=== PATIENT | female | born 1960 | race Caucasian/White ===

== ENCOUNTER 2016-10-31 19:38 | Emergency (ER) | payer OTHER ==
[2016-10-31 19:51] VITALS: BP 139/87
[2016-10-31] MEDS ORDERED: KETOROLAC TROMETHAMINE 60 MG/2 ML VIAL IM ONE (20:01)
--- NOTE | 2016-10-31 20:04 | ERNOTE ---
Upper Extremity HPI - Narrative Date of Service: 10/31/16 - General Extremities Pain Location: shoulder: left - pain with mvt Time Seen by Provider: 10/31/16 19:57 Source: patient Exam Limitations: no limitations - Immun/Allergies/Home Medications Immunizations: IMMUNIZATION HX Immunizations Up to Date No History of Influenza Vaccine No Hx Pneumococcal Vaccination No Allergies/Adverse Reactions: Allergies Allergy/AdvReac Type Severity Reaction Status Date / Time No Known Allergies Allergy Verified 02/29/16 18:48 Home Medications: HOME MEDICATIONS Budesonide/Formoterol Fumarate [Symbicort 160-4.5 Mcg Inhaler] 2 puff IH BID [Last Taken Unknown] Tiotropium [place] [Spiriva Respimat] 2 puff IH DAILY 06/07/15 [Last Taken Unknown] Nitrofurantoin Macrocrystal [Nitrofurantoin] 100 mg PO BID #14 capsule 05/18/16 [Last Taken Unknown] Lyrica 150 mg PO DAILY 10/31/16 [Last Taken Unknown] - History of Present Illness Narrative: 56 year old female presenting to the ED for left shoulder pain x 2 months. 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 denies any CP or SOB. states that she has been seeing her pcp related to this. Date (Duration): 10/31/16 Occurred: other - several months Location of Incident: work Method of Injury: Reports: twisted Loss of Consciousness: Reports: no loss of consciousness Modifying Factors - (Improves): Reports: pain medication Modifying Factors - (Worsens): Reports: movement Associated Symptoms: Reports: tingling, weakness, loss of power (lt arm) Prior Treament: Reports: treated by physician, similar symptoms before Review of Systems - Review of Systems Constitutional: Present: no symptoms reported EYE: Present: no symptoms reported ENT: Present: no symptoms reported Respiratory: Present: no symptoms reported Cardiology: Present: no symptoms reported Gastrointestinal/Abdominal: Present: no symptoms reported Genitourinary: Present: no symptoms reported Musculoskeletal: Present: See HPI Skin: Present: no symptoms reported Neurological: Present: anxiety Endocrine: Present: no symptoms reported Hematologic/Lymphatic: Present: no symptoms reported Psych: Present: no symptoms reported All Other Systems: All systems neg except as marked - Patient's Past Medical History Patient History - Medical: Chronic Pain, GERD, Migraines, Other Patient History - Cardiac/Respiratory: Asthma, Bronchitis, COPD Patient History - Cancer: No Hx of Cancer Patient History - Surgical Procedures: Cholecystectomy, Tubal Ligation, Other Patient History - Other: None - Social History Living Situations: home Abuse History: No History of abuse Psych History: No pertinent hx Smoking Status: Current every day smoker Patient requests Smoking Cessation Consult: No Initiate information on Smoking Cessation: No Alcohol Use: sober Drug Use: none - Immunizations Immunizations Up to Date: No Hx Pneumococcal Vaccination: No History of Influenza Vaccine: No Physical Exam - Physical Exam Narrative: left should pain x 2 months. states that pcp has given her pain medication ( Lyrica) but she dosnt like to take it due to side effects. Patient does have pain and decreased ROM to left arm/shoulder. General Appearance: Present: wd/wn, alert, anxious Eye Exam: Normal inspection: bilateral Ears, Nose, Throat: Present: normal ENT inspection Neck: Present: normal inspection, nontender, full range of motion Respiratory: Present: no respiratory distress, lungs clear Cardiovascular/Chest: Present: regular rate, rhythm, no murmur, normal peripheral pulses Peripheral Pulses: N=norm/S=strong/W=weak/B=bound/A=absent: Radial (R): Normal, Radial (L): Normal Gastrointestinal/Abdominal: Present: normal bowel sounds, soft Back Exam: Present: normal inspection, normal range of motion Extremity Exam: Present: normal inspection, normal except - - decrease range of motion and pain to left shoulder with abduction of left arm, decreased range of motion Neurological Exam: Present: alert, oriented, normal mood/affect Skin Exam: Present: normal color Lymphatic Exam: Present: no adenopathy ED Progress - Vital Signs Vital Signs: Vital Signs 10/31/16 19:40 Temperature 36.7 C Pulse Rate 91 Respiratory 18 Rate Blood Pressure 139/87 O2 Sat by Pulse 98 Oximetry - X-Ray X-Ray #1 X-Ray: shoulder X-ray Comments: ER attending reviewed x ray. no acute process observed at this time. - Progress/Reassessment Chief Complaint: Upper Extremity Injury/Problem Progress:: Improved Plan - Plan Plan: patient is going to follow up with ortho or PCP in the am r/t her shoulder. Departure Clinical Impression: Shoulder pain, left Qualifiers: Chronicity: chronic Qualified Code(s): M25.512 - Pain in left shoulder; G89.29 - Other chronic pain - Departure Disposition: Home Follow Up Needed Condition: Stable Instructions: Shoulder Pain, [id number] Additional Instructions: Continue home medications. May apply ice or heat to shoulder as needed for pain. may take OTC pain medication as needed. Follow up with PCP or Ortho in the next few days for further treatment. return to the ER for pain that is not being able to be controlled with [id number] pain medications or new symptoms arise. Referrals: Bay Longo MD [Primary Care Provider] -
[2016-10-31] MEDS ORDERED: KETOROLAC TROMETHAMINE 30 MG/ML VIAL ONE (20:19)
--- OUTSIDE RECORDS SUMMARY | 2016-10-31 20:26 | XMS REPORT | Continuity of Care Document ---
:1960 Demographics Home Phone [phone] Preferred Language Unknown Marital Status Unknown Holiness Affiliation [employer] Race White Ethnic Group Unknown Author Organization [facility] ([facility]) Address [address] [place] [address] Phone [phone] Care Team Providers Name Role Phone Unavailable Primary Care Provider Unavailable Source Comments This disclosure is being made pursuant to the Care Everywhere program, applicable federal and state laws, and may not contain all informaitonavailable regarding this patient.[facility] ([facility]) Active Allergies and Adverse Reactions Not on File Current Medications Not on file Active Problems Not on file Social History Tobacco Use Types Packs/Day Years Used Date Never Assessed Plan of Care Health Maintenance Due Date Last Done Comments HCV Screening 1960 Tdap Vaccine 1970 Lipid Disorder Screening 1977 MMR Vaccine 1977 Td Vaccine 1977 Mammogram 1999 Cervical Cancer Screening 12/22/2001 12/22/1998 Colonoscopy 03/07/2009 Influenza Vaccine: Seasonal (#1) 02/12/2016 Hepatitis B Vaccine Completed 10/12/1998, 10/29/1988, 09/25/1988 Results from Last 3 Months Not on file
== END 2016-10-31 20:45 | disposition home or self-care (01) ==
LOC: ER 19:38
DX: M25.512 Pain in left shoulder (principal); G89.29 Other chronic pain

== ENCOUNTER 2017-01-17 15:55 | Emergency (ER) | payer OTHER ==
[2017-01-17] MEDS ORDERED: PROMETHAZINE HCL 50 MG/ML AMPUL IM ONE ×2 (17:12→17:19)
[2017-01-17] MEDS ORDERED: NALBUPHINE HCL 20 MG/ML AMPUL IM ONE (17:12)
--- NOTE | 2017-01-17 17:13 | ERNOTE ---
Headache ER HPI - Narrative Date of Service: 01/17/17 - General Presenting Symptoms: "migraine" Time Seen by Provider: 01/17/17 17:05 Source: patient, family, RN notes reviewed Exam Limitations: other - emotional upset - Immun/Allergies/Home Medications Immunizations: IMMUNIZATION HX Immunizations Up to Date Yes History of Influenza Vaccine Yes Hx Pneumococcal Vaccination No Allergies/Adverse Reactions: Allergies No Known Allergies Allergy (Verified 02/29/16 18:48) Home Medications: HOME MEDICATIONS Budesonide/Formoterol Fumarate [Symbicort 160-4.5 Mcg Inhaler] 2 puff IH BID [Last Taken Unknown] Tiotropium [place] [Spiriva Respimat] 2 puff IH DAILY 06/07/15 [Last Taken Unknown] Nitrofurantoin Macrocrystal [Nitrofurantoin] 100 mg PO BID #14 capsule 05/18/16 [Last Taken Unknown] Lyrica 150 mg PO DAILY 10/31/16 [Last Taken Unknown] - Pain Pain Score: 10 - History of Present Illness Narrative: 56 y/o female brought to the ED by her significant other and sister for a migraine. She had an appointment to be seen by her PCP, but she came to the appointment 2 hours early. They became upset and left the office. She was being seen because she is having headaches more often than usual as of late. She has been taking Tylenol without improvement. She has also taken Lyrica. Date (Duration): 01/16/17 Timing of Headache: abrupt, still present Quality: Present: stabbing, throbbing Severity Maximum: Present: severe Severity-Currently: Present: severe Headache frequency: Present: frequent headaches, similar to previous headache Exacerbated by:: Reports: light Prior Treament: Reports: similar symptoms before. Denies: recently seen Review of Systems - Review of Systems Constitutional: Present: fatigue. Absent: recent illness, fever, chills EYE: Absent: eye pain, vision changes ENT: Present: nose congestion, nasal drainage. Absent: ear pain, sore throat Respiratory: Absent: shortness of breath, cough Cardiology: Absent: chest pain, syncope Gastrointestinal/Abdominal: Absent: nausea, vomiting, abdominal pain Genitourinary: Present: no symptoms reported Musculoskeletal: Absent: muscle pain, neck pain Skin: Absent: rash, lesions Neurological: Present: headache. Absent: dizziness/light-headedness Endocrine: Present: no symptoms reported Hematologic/Lymphatic: Present: no symptoms reported Psych: Present: no symptoms reported - Patient's Past Medical History Patient History - Medical: Chronic Pain, GERD, Migraines, Other Patient History - Cardiac/Respiratory: Asthma, Bronchitis, COPD Patient History - Cancer: No Hx of Cancer Patient History - Surgical Procedures: Cholecystectomy, Tubal Ligation, Other Patient History - Other: None - Social History Living Situations: home Abuse History: No History of abuse Psych History: No pertinent hx Smoking Status: Current every day smoker Have you smoked in the past 12 months: Yes Do you dip or chew tobacco: No Patient requests Smoking Cessation Consult: No Initiate information on Smoking Cessation: No Alcohol Use: occasionally Drug Use: none - Immunizations Immunizations Up to Date: Yes Hx Pneumococcal Vaccination: No History of Influenza Vaccine: Yes Physical Exam - Physical Exam General Appearance: Present: wd/wn, alert, mild distress, other - Wearing sunglasses, sitting in dark room Eye Exam: Normal inspection: bilateral, PERRL: bilateral Ears, Nose, Throat: Present: nasal congestion, normal pharynx. Absent: abnormal TM (R), abnormal TM (L), sinus pain/drainage Neck: Present: normal inspection, nontender, supple, full range of motion Respiratory: Present: no respiratory distress, normal breath sounds, no accessory muscle use, lungs clear Cardiovascular/Chest: Present: regular rate, rhythm, no murmur Extremity Exam: Present: normal inspection, normal range of motion, no edema Neurological Exam: Present: alert, oriented, normal mood/affect, no motor/ sensory deficits Skin Exam: Present: normal color, warm/dry ED Progress - Vital Signs Patient's Vital Signs:: I have reviewed the patient's vital signs. Vital Signs: Vital Signs 01/17/17 16:06 Temperature 35.8 C L Pulse Rate 103 H Respiratory 16 Rate Blood Pressure 106/76 O2 Sat by Pulse 96 Oximetry - Progress/Reassessment Chief Complaint: Headache Progress:: Improved Departure Clinical Impression: Migraine headache Qualifiers: Migraine type: without aura Status migrainosus presence: without status migrainosus Intractability: not intractable Qualified Code(s): G43.009 - Migraine without aura, not intractable, without status migrainosus - Departure Disposition: Home Follow Up Needed Condition: Stable Instructions: Migraine Headache, [id number] Referrals: Bay Longo MD [Primary Care Provider] -
[2017-01-17] MEDS ORDERED: NALBUPHINE HCL 20 MG/ML AMPUL ONE (17:19)
[2017-01-17 17:53] VITALS: BP 135/82
== END 2017-01-17 17:45 | disposition home or self-care (01) ==
LOC: ER 15:55
DX: G43.009 Migraine without aura, not intractable, without status migrainosus (principal)

== ENCOUNTER 2017-02-10 22:39 | Emergency (ER) | payer OTHER ==
--- NOTE | 2017-02-10 23:30 | ERNOTE ---
Medical Problem HPI - General Chief Complaint: Screening, Blood Pressure Time Seen by Provider: 02/10/17 23:09 Source: patient Exam Limitations: no limitations - Immun/Allergies/Home Medications Immunizations: IMMUNIZATION HX Immunizations Up to Date Yes History of Influenza Vaccine Yes Hx Pneumococcal Vaccination No Allergies/Adverse Reactions: Allergies No Known Allergies Allergy (Verified 02/29/16 18:48) Home Medications: HOME MEDICATIONS Budesonide/Formoterol Fumarate [Symbicort 160-4.5 Mcg Inhaler] 2 puff IH BID [Last Taken Unknown] Tiotropium [place] [Spiriva Respimat] 2 puff IH DAILY 06/07/15 [Last Taken Unknown] Lyrica 150 mg PO DAILY 10/31/16 [Last Taken Unknown] Albuterol Sulfate [Ventolin HFA] 1 puff IH Q6H PRN 02/10/17 [Last Taken Unknown] Omeprazole 40 mg PO DAILY 02/10/17 [Last Taken Unknown] Ranitidine HCl [Zantac] 300 mg PO HS 02/10/17 [Last Taken Unknown] Sucralfate [Carafate] 1 gm PO QID 02/10/17 [Last Taken Unknown] Lisinopril [Zestril] 2.5 mg PO DAILY #15 tablet 02/11/17 [Last Taken Unknown] - History of Present History Narrative: Pt concerned about her blood pressure and pulse. She believes it is too high. Pt called this ED 2 days ago with same concern and asking if she was having a stroke. pt was told that we are unable to assess a stroke over the phone and she would need to be seen if we are going to make that assessment. Pt did not present for evaluation until tonight. She states she has been having a "pulsing feeling" all over her body for 2-3 months. tonight she worsened and came to the ED Timing: getting worse Severity: moderate Review of Systems - Review of Systems Constitutional: Absent: recent illness EYE: Present: no symptoms reported ENT: Present: no symptoms reported Respiratory: Absent: shortness of breath, cough Cardiology: Present: palpitations. Absent: chest pain, syncope Gastrointestinal/Abdominal: Present: no symptoms reported Genitourinary: Present: no symptoms reported Musculoskeletal: Present: no symptoms reported Skin: Absent: rash Neurological: Present: headache - chronic. Absent: anxiety Endocrine: Absent: excessive sweating, flushing Hematologic/Lymphatic: Present: no symptoms reported - Patient's Past Medical History Patient History - Medical: Chronic Pain, GERD, Migraines, Other Patient History - Cardiac/Respiratory: Asthma, Bronchitis, COPD Patient History - Cancer: No Hx of Cancer Patient History - Surgical Procedures: Cholecystectomy, Tubal Ligation, Other Patient History - Other: None LMP (females 10-50): Menopausal - Social History Living Situations: significant other Abuse History: No History of abuse Psych History: No pertinent hx Smoking Status: Current every day smoker Have you smoked in the past 12 months: Yes Do you dip or chew tobacco: No Alcohol Use: occasionally Drug Use: none - Immunizations Immunizations Up to Date: Yes Hx Pneumococcal Vaccination: No History of Influenza Vaccine: Yes Physical Exam - Physical Exam General Appearance: Present: wd/wn, alert, no apparent distress Head Exam: Present: normal inspection, no evidence of injury Eye Exam: Normal inspection: bilateral, PERRL: bilateral, EOMI: bilateral Ears, Nose, Throat: Present: normal ENT inspection Neck: Present: normal inspection, nontender Respiratory: Present: no respiratory distress, normal breath sounds, lungs clear Cardiovascular/Chest: Present: regular rate, rhythm, no murmur, normal peripheral pulses Extremity Exam: Present: normal inspection, normal range of motion Neurological Exam: Present: alert, oriented, normal mood/affect, no motor/ sensory deficits, 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 Results and Orders: Laboratory Tests 02/10/17 02/10/17 23:30 23:30 WBC 11.8 H Hgb 15.0 Hct 46.0 Plt Count 373 Sodium 142 Potassium 4.0 Chloride 102 BUN 15 Creatinine 1.01 Random Glucose 87 Calcium 9.0 AST 28 ALT 66 TSH 0.962 Free T4 1.11 Laboratory Tests 02/11/17 00:00 Troponin I Less than 0.017 - Vital Signs Patient's Vital Signs:: I have reviewed the patient's vital signs. Vital Signs: Vital Signs 02/10/17 22:48 Temperature 36.1 C L Pulse Rate 94 Respiratory 20 Rate Blood Pressure 114/83 O2 Sat by Pulse 97 Oximetry - EKG EKG read: Interp. by me EKG Comments: Possible LVH Possible old anterior OK. Possible left atrial enlargement - Progress/Reassessment Chief Complaint: Screening, Blood Pressure Progress:: Unchanged Progress Note-Subjective: 02/11/17 00:51 discussed possible changes on EKG and that there were no acute changes to be concerned about tonight. discussed seeing her regular doctor to watch her BP and consider any further testing. Pt expressed understanding Departure - Departure Clinical Impression: Hypertension Qualifiers: Hypertension type: unspecified Qualified Code(s): I10 - Essential (primary) hypertension Disposition: Home Follow Up Needed Condition: Good Instructions: Hypertension, [id number] Additional Instructions: follow up with your regular doctor in 2-3 weeks and discuss any further testing that may need to be done. Referrals: Bay Longo MD [Primary Care Provider] - Prescriptions: Lisinopril [Zestril] 2.5 mg PO DAILY #15 tablet
[2017-02-10 23:39] LABS: Mean Cell Volume 94.1 fl (78-100); Mean Corpuscular Hemoglobin 30.7 pg (27-31); Mean Corpuscular Hgb Conc 32.6 g/dl (32-36); Mean Platelet Volume 9.7 fl (6.0-9.5); Neutrophil # 7.3 K/mm3 (1.3-6.0); Neutrophil % 62.3 % (42-75.0); Platelet Count 373 K/mm3 (150-450); Red Blood Count 4.89 M/mm3 (4.2-5.4); Red Cell Distribution Width 14.1 % (11.5-14.0); White Blood Count 11.8 K/mm3 (4.0-10.5)
[2017-02-11 00:01] LABS: Albumin * 3.7 gm/dl (3.4-5.0); Anion Gap 8.8 mmol/L (6.8-13.8); BUN/Creatinine Ratio 14.9 (9.0-21.6); Bilirubin, Total 0.4 mg/dL (0.0-1.1); Ca. Corrected For Albumin 8.9 mg/dL (8.4-10.2); Carbon Dioxide 35.2 mmol/L (24-32.6); T4 Free * 1.11 ng/dL (0.76-1.46); TSH * 0.962 uIU/mL (0.358-3.74); Total Protein 7.6 gm/dL (6.2-8.2)
[2017-02-11] MEDS ORDERED: LISINOPRIL 10 MG TABLET PO ONE (00:46)
[2017-02-11] MEDS ORDERED: LISINOPRIL 5 MG TABLET ONE (00:48)
[2017-02-11 00:52] VITALS: BP 140/102
== END 2017-02-11 01:18 | disposition home or self-care (01) ==
LOC: ER 22:39
DX: I10 Essential (primary) hypertension (principal); G89.29 Other chronic pain; K21.9 Gastro-esophageal reflux disease without esophagitis; J44.9 Chronic obstructive pulmonary disease, unspecified; F17.200 Nicotine dependence, unspecified, uncomplicated

== ENCOUNTER 2018-08-10 05:31 | Observation (INO) ==
[2018-08-10] MEDS ORDERED: ONDANSETRON HCL/PF 2 MG/ML VIAL IV ONE (05:58)
[2018-08-10] MEDS ORDERED: HYDROmorphone HCL 1 MG/ML DISP.SYRIN IV ONE ×2 (05:58→07:06)
[2018-08-10] MEDS ORDERED: NORMAL SALINE 1,000 ML IV ONE (05:58)
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
[2018-08-10 06:17] LABS: Hematocrit 42.3 % (37.0-47.0); Hemoglobin 13.9 gm/dL (12.5-16.0); Mean Cell Volume 90.6 fl (78-100); Mean Corpuscular Hemoglobin 29.8 pg (27-31); Mean Corpuscular Hgb Conc 32.9 g/dl (32-36); Neutrophil # 8.4 K/mm3 (1.3-6.0); Neutrophil % 69.1 % (42-75.0); Platelet Count 363 K/mm3 (150-450); Red Blood Count 4.67 M/mm3 (4.2-5.4); Red Cell Distribution Width 14.3 % (11.5-14.0); White Blood Count 12.2 K/mm3 (4.0-10.5)
[2018-08-10] MEDS ORDERED: DIATRIZOATE MEGLUMINE, SODIUM 30 ML BTL PO ONE (06:21)
[2018-08-10 06:38] LABS: Prothrombin Time (Patient) 9.9 Seconds (9.0-11.0)
[2018-08-10 06:43] LABS: Albumin * 3.2 gm/dl (3.4-5.0); Anion Gap 13.1 mmol/L (6.8-13.8); BUN/Creatinine Ratio 14.8 (9.0-21.6); Bilirubin, Total 0.8 mg/dL (0.0-1.1); Ca. Corrected For Albumin 9.2 mg/dL (8.4-10.2); Calcium * 8.9 mg/dL (7.9-10.9); Carbon Dioxide 27.9 mmol/L (24-32.6); INR 0.99 INR (0.90-1.10); Total Protein 6.9 gm/dL (6.2-8.2)
[2018-08-10 08:18] LABS: Urine Appearance Slightly Cloudy (CLEAR); Urine Color Orange
[2018-08-10 08:19] LABS: Urine Bacteria TRACE; Urine Bilirubin 1 mg/dl (NEGATIVE); Urine Blood Negative /ul (NEGATIVE); Urine Ketone Negative (NEGATIVE); Urine Nitrite Negative (NEGATIVE); Urine Protein Negative (NEGATIVE); Urine RBC None Seen /hpf (0-5); Urine Specific Gravity 1.025 SP.GR. (1.005-1.010); Urine Urobilinogen Normal (NORMAL); Urine WBC 0-5 /hpf (0-5)
[2018-08-10] MEDS ORDERED: METOCLOPRAMIDE HCL 5 MG/ML VIAL ONE (08:35)
[2018-08-10] MEDS ORDERED: METOCLOPRAMIDE HCL 5 MG/ML VIAL IV ONE (08:35)
[2018-08-10] MEDS: HYDROmorphone HCL 2 MG TABLET PO PRN ×2 (12:34→19:00)
--- NOTE | 2018-08-10 12:48 | CONS ---
- Reason for consultation (1) Colitis Date of Service: 08/10/18 HPI - General Source: patient Exam Limitations: no limitations - History of Present Illness Initial Comments: Mary is a pleasant 58-year-old female who was admitted through the emergency room. She has had left lower quadrant abdominal pain. This has been going on for 2 days. She has also had diarrhea which has been bloody in color. She normally has constipation and can even go 2 weeks without having a bowel movement. She has never had a colonoscopy before. She denies a family history of inflammatory bowel disease. She denies a family history of colon cancer. She has not recently been on antibiotics. She has a history of ulcers and has had an upper endoscopy. She has had some nausea and vomiting with eating. She had an EGD in August 2017, this was done with Dr. Parry. It was amanda negative, and showed esophagitis and gastritis. Her vital signs have been stable except for mild tachycardia. Her CT scan showed a stable adrenal mass. Colon bowel wall thickening in the descending colon for a 10 cm segment. There is diverticulosis but no signs of diverticulitis. Timing/Duration: other Severity: severe Modifying Factors - (Worsens): Reports: movement Modifying Factors - (Improves): Reports: other - pain medicine Associated Symptoms: fever/chills, malaise, nausea, vomiting Allergies/Adverse Reactions: Allergies pantoprazole Adverse Reaction (Mild, Verified 08/10/18 11:25) RASH allergic per patient sucralfate [From Carafate] Adverse Reaction (Mild, Verified 08/10/18 11:25) Nausea pt states allergic Home Medications: Home Medications Medication Instructions Recorded Last Taken omeprazole 40 mg capsule,delayed 40 mg PO DAILY #90 cap 02/04/18 Unknown release ranitidine 300 mg tablet 300 mg PO HS #90 tab 02/04/18 Unknown albuterol sulfate HFA 90 2 puff IH Q6H PRN 03/19/18 Unknown mcg/actuation aerosol inhaler tiotropium bromide 18 mcg capsule 1 cap IH BID inh 03/19/18 Unknown with inhalation device budesonide-formoterol HFA 160 2 puff IH BID #10.2 g 03/20/18 Unknown mcg-4.5 mcg/actuation aerosol inhaler Medications - Medications Current Medications: Current Medications Hydromorphone HCl (Dilaudid) 2 mg PO Q6H PRN PRN Reason: Pain Stop: 09/09/18 12:27 Last Admin: 08/10/18 12:34 Dose: 2 mg Documented by: Review of Systems - Review of Systems Generalized/Overall Review: Present: Weakness, Malaise EENTM: Present: No Symptoms Reported Respiratory: Present: No Symptoms Reported Cardiac: Present: No Symptoms Reported Abdominal: Present: Nausea, Vomiting, Abdominal Pain, Diarrhea Genitourinary: Present: No Symptoms Reported Musculoskeletal: Present: No Symptoms Reported Neurological: Present: No Symptoms Reported Skin: Present: No Symptoms Reported Endocrine: Present: No Symptoms Reported Physical Examination - Exam Vital Signs: Vital Signs - Last Taken Temp 36.5 C 08/10/18 11:36 Pulse 95 08/10/18 11:36 Resp 18 08/10/18 11:36 BP 105/74 08/10/18 11:36 Pulse Ox 93 08/10/18 11:36 O2 Oxygen Delivery Method Room Air Constitutional: Present: Alert, Oriented x3, Cooperative, Mild distress ENT Exam: Present: normal ENT inspection Neck: Present: supple, trachea midline Respiratory: Present: lungs clear, normal breath sounds Cardiovascular/Chest: Present: regular rate, rhythm Abdomen: Present: Normal bowel sounds, soft, no masses, tender. 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 Appearance: Present: appropriate appearance Eye contact: Present: cooperative, good eye contact, normal speech Thoughts: Present: normal thought pattern - Results and Findings: Lab/Microbiology results last 24 hrs: Abnormal/Pending Laboratory Last 24 HRS 08/10/18 08/10/18 08/10/18 10:32 07:10 06:15 WBC RDW Neutrophils # ESR 26 H Est GFR (Non-Af Amer) Random Glucose Albumin Urine Glucose (UA) 100 H Urine Bilirubin 1 H Stool Occult Blood Positive H 08/10/18 08/10/18 06:15 06:15 WBC 12.2 H RDW 14.3 H Neutrophils # 8.4 H ESR Est GFR (Non-Af Amer) 55 L Random Glucose 122 H Albumin 3.2 L Urine Glucose (UA) Urine Bilirubin Stool Occult Blood - Assessments/Findings (1) Colitis Problem: Acute Plan - Plan Plan: I was consulted. I would recommend stool studies. Consider Antibiotics. She will need an outpt colonoscopy. Bowel regimen at home to regulate her constipation. Continue to monitor closely.
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
[2018-08-11] MEDS: HYDROmorphone HCL 2 MG TABLET PO PRN ×2 (01:24→08:42)
[2018-08-11 05:48] LABS: Hemoglobin 12.6 gm/dL (12.5-16.0); Mean Cell Volume 90.9 fl (78-100); Mean Corpuscular Hemoglobin 29.4 pg (27-31); Mean Corpuscular Hgb Conc 32.3 g/dl (32-36); Mean Platelet Volume 10.2 fl (8-12.5); Neutrophil # 6.7 K/mm3 (1.3-6.0); Neutrophil % 60.2 % (42-75.0); Platelet Count 352 K/mm3 (150-450); Red Blood Count 4.29 M/mm3 (4.2-5.4); Red Cell Distribution Width 14.1 % (11.5-14.0); White Blood Count 11.1 K/mm3 (4.0-10.5)
--- NOTE | 2018-08-11 06:22 | PN ---
Dictated Progress Note - Date and Time Seen: Date: 08/11/18 Time: 06:22 - Progress Note Narrative: feeling better today, less pain, no n/v. BM have stopped Vital Signs - Last Taken Temp 36.6 C 08/11/18 02:57 Pulse 93 08/11/18 02:57 Resp 18 08/11/18 02:57 BP 115/73 08/11/18 02:57 Pulse Ox 91 L 08/11/18 02:57 Abnormal/Pending Laboratory Last 24 HRS 08/11/18 08/10/18 08/10/18 05:41 10:32 07:10 WBC 11.1 H RDW 14.1 H Immature Gran % (Auto) 0.50 H Immature Gran # (Auto) 0.05 H Eosinophils % 3.3 H Neutrophils # 6.7 H ESR 26 H Est GFR (Non-Af Amer) Random Glucose Albumin Urine Glucose (UA) 100 H Urine Bilirubin 1 H Stool Occult Blood 08/10/18 08/10/18 06:15 06:15 WBC RDW Immature Gran % (Auto) Immature Gran # (Auto) Eosinophils % Neutrophils # ESR Est GFR (Non-Af Amer) 55 L Random Glucose 122 H Albumin 3.2 L Urine Glucose (UA) Urine Bilirubin Stool Occult Blood Positive H NAD non labored abd soft, no guarding tubing machine tender in LLQ IMP: colitis Plan: await stool cultures out pt scope
[2018-08-11 06:27] LABS: Albumin * 2.7 gm/dl (3.4-5.0); Anion Gap 12.1 mmol/L (6.8-13.8); BUN/Creatinine Ratio 14.3 (9.0-21.6); Bilirubin, Total 0.4 mg/dL (0.0-1.1); Ca. Corrected For Albumin 9.2 mg/dL (8.4-10.2); Calcium * 8.5 mg/dL (7.9-10.9); Carbon Dioxide 28.1 mmol/L (24-32.6); Potassium 4.2 mmol/L (3.4-4.6); Total Protein 6.3 gm/dL (6.2-8.2)
--- NOTE | 2018-08-11 13:50 | DS ---
(1) Abdominal pain in female patient Problem: Acute (2) Colitis Problem: Acute (3) Ovarian mass, right Problem: Chronic (4) Rectal bleed Problem: Acute (5) Adrenal mass Problem: Chronic Description of Stay: 58-year-old woman that developed left lower quadrant abdominal pain and hematochezia 2 days prior to admission. She remained stable in the hospital and has had no vomiting or bowel movement since she was here. She was noted to have bilateral adrenal tumors and a mass in her right ovary. She was seen by surgery who recommended an outpatient colonoscopy. We intended stool samples, but obtained none because she has not had a bowel movement. We will do them as an outpatient as well as an ultrasound to further evaluate her right ovary. The Procedures Performed: none Results and Findings: Lab Pending Results 08/10/18 06:15: WBC 12.2 H, RBC 4.67, Hgb 13.9, Hct 42.3, MCV 90.6, MCH 29.8, MCHC 32.9, RDW 14.3 H, Plt Count 363, MPV 10.0, Immature Gran % (Auto) 0.20, Immature Gran # (Auto) 0.03, Neutrophils % 69.1, Lymphocytes % 22.4, Monocytes % 6.5, Eosinophils % 1.3, Basophils % 0.5, Nucleated RBC % 0.0, Neutrophils # 8.4 H, Lymphocytes # 2.73, Monocytes # 0.8, Eosinophils # 0.2, Absolute Basophils 0.1 08/10/18 06:15: PT 9.9, INR (Anticoag Therapy) 0.99, PTT ([place]) 28.0 08/10/18 06:15: Sodium 142, Plasma Sodium 142, Potassium 4.0, Chloride 105, Carbon Dioxide 27.9, Anion Gap 13.1, BUN 16, Creatinine 1.08, Est GFR (Non-Af Amer) 55 L, BUN/Creatinine Ratio 14.8, Random Glucose 122 H, Calcium 8.9, Calcium Adj for Albumin 9.2, Total Bilirubin 0.8, AST 23, ALT 32, Alkaline Phosphatase 113, Total Protein 6.9, Albumin 3.2 L, Lipase 101 08/10/18 06:15: Stool Occult Blood Positive H 08/10/18 06:35: Blood Type O Positive, Antibody Screen Negative 08/10/18 07:10: Urine Color [place], Urine Appearance Slightly cloudy, Urine pH 6.0, Ur Specific [place] 1.025, Urine Protein Negative, Urine Glucose (UA) 100 H, Urine Ketones Negative, Urine Blood Negative, Urine Nitrate Negative, Urine Bilirubin 1 H, Urine Ictotest Negative, Urine Urobilinogen Normal, Ur Leukocyte Esterase Negative, Urine RBC None seen, Urine WBC 0-5, Ur Epithelial Cells 0-5, Urine Bacteria Trace, Urine Culture Comments No culture indicated 08/10/18 10:06: Lactic Acid, Venous 0.5 08/10/18 10:32: ESR 26 H 08/11/18 05:41: WBC 11.1 H, RBC 4.29, Hgb 12.6, Hct 39.0, MCV 90.9, MCH 29.4, MCHC 32.3, RDW 14.1 H, Plt Count 352, MPV 10.2, Immature Gran % (Auto) 0.50 H, Immature Gran # (Auto) 0.05 H, Neutrophils % 60.2, Lymphocytes % 27.8, Monocytes % 7.6, Eosinophils % 3.3 H, Basophils % 0.6, Nucleated RBC % 0.0, Neutrophils # 6.7 H, Lymphocytes # 3.08, Monocytes # 0.8, Eosinophils # 0.4, Absolute Basophils 0.1 08/11/18 05:41: Sodium 138, Plasma Sodium 138, Potassium 4.2, Chloride 102, Carbon Dioxide 28.1, Anion Gap 12.1, BUN 13, Creatinine 0.91, Est GFR (Non-Af Amer) 67 D, BUN/Creatinine Ratio 14.3, Random Glucose 111 H, Calcium 8.5, Calcium Adj for Albumin 9.2, Total Bilirubin 0.4, AST 21, ALT 27, Alkaline Phosphatase 121, Total Protein 6.3, Albumin 2.7 L Discharge Location: Home Disposition: Home self-care Condition: Good Discharge Activity: Activity as tolerated Discharge Diet: General/regular food Referrals: Bay Longo MD [Primary Care Provider] - Additional Patient Instructions (free text): Please make a routine referral to Dr. Skylar Butt for colonoscopy because of her colitis diagnosis. See me in the office in 3 days. please call if there are problems or questions. Prescriptions (Any new or edited meds): RX: Albuterol Sulfate [Proventil Hfa] 2 puff INHALATION Q6H PRN #1 hfa.aer.ad PRN Reason: Wheezing RX: Budesonide/Formoterol Fumarate [Symbicort 160-4.5 Mcg Inhaler] 2 puff INHALATION BID #10.2 g RX: HYDROmorphone HCL [Dilaudid] 2 mg PO TID PRN #15 tab PRN Reason: Pain Magnesium Hydroxide [Milk Of Magnesia] 30 ml PO BID #1800 ml RX: Omeprazole 40 mg PO DAILY #90 cap RX: Ranitidine HCl [Zantac] 300 mg PO HS #90 tab RX: Tiotropium [place] [Spiriva] 1 cap INHALATION BID #60 inh Wheat Dextrin [Benefiber] 1 ea PO BID #60 powd.pack Complete Home Medications List: Complete Home Medication List: Magnesium Hydroxide [Milk Of Magnesia] 30 ml PO BID #1800 ml 08/11/18 RX: Albuterol Sulfate [Proventil Hfa] 2 puff INHALATION Q6H PRN #1 hfa.aer.ad 08/11/18 RX: Budesonide/Formoterol Fumarate [Symbicort 160-4.5 Mcg Inhaler] 2 puff INHALATION BID #10.2 g 08/11/18 RX: HYDROmorphone HCL [Dilaudid] 2 mg PO TID PRN #15 tab 08/11/18 RX: Omeprazole 40 mg PO DAILY #90 cap 08/11/18 RX: Ranitidine HCl [Zantac] 300 mg PO HS #90 tab 08/11/18 RX: Tiotropium [place] [Spiriva] 1 cap INHALATION BID #60 inh 08/11/18 Wheat Dextrin [Benefiber] 1 ea PO BID #60 powd.pack 08/11/18 Amb Orders for Discharge: Ova & Parasites Time Frame: 1 Week, Location: Laboratory Culture Stool Time Frame: 1 Week, Location: Laboratory US Pelvic Complete * Time Frame: 1 Week, Location: Radiology
[2018-08-11 14:52] VITALS: BP 128/74
== END 2018-08-11 15:10 | disposition home or self-care (01) ==
LOC: ER 05:31 → MS 05:31
PROVIDERS: ADMIT Internal Medicine; ATTEND Internal Medicine
DX: D72.829 Elevated white blood cell count, unspecified; R10.32 Left lower quadrant pain; K62.5 Hemorrhage of anus and rectum; K52.9 Noninfective gastroenteritis and colitis, unspecified; N83.9 Noninflammatory disorder of ovary, fallopian tube and broad ligament, unspecified; E27.9 Disorder of adrenal gland, unspecified
CPT/HCPCS: 36415; 74177; 80053; 81001; 82272; 83605; 83690; 85025; 85610; 85652; 85730; 86850; 86900; 87045; 87046; 87077; 87177; 87209; 87328; 87329; 87493; 96374; 96375; 96376; 99285; G0378; J2405